=== PATIENT | male | born 1980 | race Hispanic/Latino ===

== ENCOUNTER 2019-10-09 12:42 | Observation (INO) | payer SELFPAY ==
[2019-10-09 14:16] LABS: Absolute Lymphocytes (CBC) 1.9 K/uL (0.7-4.9); Basophils % 0.7 % (0-1.3); Hematocrit 48.9 % (39.6-49.0); Lymphocytes % 14.5 % (15.3-44.8); MPV 9.1 fL (7.6-11.3); RBC Red Blood Cell Count 5.48 M/uL (4.33-5.43)
[2019-10-09 14:24] LABS: Urine Blood 2+ (NEG); Urine Glucose 2+ (NEG); Urine Protein 1+ (NEG)
--- NOTE | 2019-10-09 14:32 | RAD REPORT ---
EXAM DESCRIPTION: CT - Stone Protocol - 10/09/2019 2:01 pm CLINICAL HISTORY: Abdominal pain. COMPARISON: None. TECHNIQUE: Computed axial tomography of the abdomen pelvis was obtained without oral or IV contrast. Lack of IV and oral contrast limits evaluation of solid organs, bowel, and vessels. Coronal reformat kirstie images were obtained and reviewed. All CT scans are performed using dose optimization technique as appropriate and may include automated exposure control or mA/KV adjustment according to patient size. FINDINGS: A renal calculus is not seen. An ureteral calculus is not noted. A bladder calculus is not present. Fatty liver The Spleen, pancreas and adrenals appear grossly normal There is no evidence of diverticulitis. The appendix is mildly enlarged. Minimal stranding is present within the adjacent fat. No free air. N o abscess Small inguinal hernias contain fat. Small umbilical hernia contains fat IMPRESSION: Negative for a genitourinary calculus Mild enlargement of the appendix with minimal stranding in the adjacent fat suspicious for an early a ppendicitis. This should be correlated clinically
[2019-10-09] MEDS ORDERED: MORPHINE 4 MG/ML SYR ONE (14:34)
[2019-10-09] MEDS ORDERED: NA CHLORIDE 0.9% 1,000 ML ONE ×2 (14:34→16:14)
[2019-10-09 14:35] LABS: Albumin 4.7 g/dL (3.4-5.0); Bilirubin Direct 0.3 mg/dL (0-0.2); Bilirubin Total 1.4 mg/dL (0.2-1.0); Potassium 3.7 mmol/L (3.5-5.1); Protein, Total 8.8 g/dL (6.4-8.2)
[2019-10-09] MEDS ORDERED: ACETAMINOPHEN 500 MG TAB ONE (14:38)
[2019-10-09] MEDS ORDERED: ONDANSETRON 4 MG/2 ML VIAL ONE ×2 (14:38→16:55)
[2019-10-09 14:56] LABS: Urine Bacteria <20 /HPF (NONE SEEN); Urine Culture Reflex Order NOT NEEDED; Urine Mucus 1+ /HPF (NONE SEEN); Urine RBC >50 /HPF (NONE SEEN)
--- NOTE | 2019-10-09 15:05 | ER ---
Nurse's Notes [facility] Name: Aman John Age: 39 yrs Sex: Male : 1980 Arrival Date: 10/09/2019 Time: 12:46 Bed 5 Private MD: Diagnosis: Acute appendicitis Presentation: 10/09 12:54 Presenting complaint: Patient states: "Last night my body was aching, I've been having aj1 a lot of discomfort when I pee, my lower back hurts and my hips and my legs. I went to the clinic and gave them a urine sample and I had blood in it, they said to come to the hospital.". Transition of care: patient was not received from another setting of care. Onset of symptoms was 2019. Risk Assessment: Do you want to hurt yourself or someone else? Patient reports no desire to harm self or others. Initial Sepsis Screen: Does the patient meet any 2 criteria? HR > 90 bpm. No. Patient's initial sepsis screen is negative. Does the patient have a suspected source of infection? Yes: Dysuria/Frequency/Urgency/UTI. Care prior to arrival: None. 12:54 Method Of Arrival: Ambulatory aj1 12:54 Acuity: NITA 3 aj1 Triage Assessment: 12:58 General: Appears in no apparent distress. uncomfortable, Behavior is calm, cooperative, aj1 appropriate for age. Pain: Complains of pain in back Pain currently is 4 out of 10 on a pain scale. Neuro: Level of Consciousness is awake, alert, obeys commands. Cardiovascular: Patient's skin is warm and dry. Respiratory: Airway is patent Respiratory effort is even, unlabored, Respiratory pattern is regular, symmetrical. : Reports burning with urination. Musculoskeletal: Range of motion: intact in all extremities. Historical: - Allergies: 12:58 shrimp; aj1 - Home Meds: 12:58 Gemfibrozil Oral [Active]; Lisinopril Oral [Active]; aj1 - PMHx: 12:58 Diabetes - NIDDM; Hyperlipidemia; Hypertension; aj1 - Immunization history:: Adult Immunizations up to date. - Social history:: Smoking status: Patient/guardian denies using tobacco. - Ebola Screening: : Patient denies travel to an Ebola-affected area in the 21 days before illness onset. Screenin:49 Abuse screen: Denies threats or abuse. Nutritional screening: No deficits noted. em Tuberculosis screening: No symptoms or risk factors identified. Fall Risk None identified. Assessment: 14:40 General: Appears in no apparent distress. comfortable, Behavior is calm, cooperative, em appropriate for age, Reports fever for. Pain: Complains of pain in right low back Pain currently is 4 out of 10 on a pain scale. Neuro: Level of Consciousness is awake, alert, obeys commands, Oriented to person, place, time, situation, Appropriate for age. Cardiovascular: Capillary refill < 3 seconds Patient's skin is warm and dry. Respiratory: Airway is patent Respiratory effort is even, unlabored, Respiratory pattern is regular, symmetrical. GI: Patient currently denies nausea, vomiting. Derm: Skin is intact, is healthy with good turgor, Skin is pink, warm \\T\\ dry. Musculoskeletal: Capillary refill < 3 seconds, Range of motion: intact in all extremities. 14:45 Reassessment: currently rates pain 4/10, does not want any pain medication at this em time, provider notified. 15:30 Reassessment: Patient appears in no apparent distress at this time. Patient and/or em family updated on plan of care and expected duration. Pain level reassessed. Patient is alert, oriented x 3, equal unlabored respirations, skin warm/dry/pink. 16:30 Reassessment: Patient appears in no apparent distress at this time. Patient and/or em family updated on plan of care and expected duration. Pain level reassessed. Patient is alert, oriented x 3, equal unlabored respirations, skin warm/dry/pink. 17:41 Reassessment: Patient appears in no apparent distress at this time. Patient and/or em family updated on plan of care and expected duration. Pain level reassessed. Patient is alert, oriented x 3, equal unlabored respirations, skin warm/dry/pink. report given to TRUDY Amos. Vital Signs: 12:58 BP 150 / 100; Pulse 104; Resp 20; Temp 100.3; Pulse Ox 98% on R/A; Weight 90.72 kg (R); aj1 Height 5 ft. 4 in. (162.56 cm) (R); Pain 4/10; 14:48 BP 132 / 89; Pulse 112; Resp 20; Pulse Ox 97% on R/A; Pain 4/10; em 15:54 BP 130 / 69; Pulse 105; Resp 18; Temp 99.8(O); Pulse Ox 99% on R/A; Pain 4/10; em 16:37 BP 110 / 60; Pulse 98; Pulse Ox 96% on R/A; Pain 3/10; em 12:58 Body Mass Index 34.33 (90.72 kg, 162.56 cm) aj1 ED Course: 12:46 Patient arrived in ED. mr 12:57 Triage completed. aj1 12:58 Arm band placed on Patient placed in waiting room, Patient notified of wait time. aj1 13:47 Mayank Guillen, ELLY is PHCP. pm1 13:47 Minor Jose MD is Attending Physician. pm1 13:59 Initial lab(s) drawn, by me, sent to lab. Inserted saline lock: 20 gauge in right lt1 antecubital area, using aseptic technique. 14:01 CT Stone Protocol In Process Unspecified. EDMS 14:07 Urine Culture Sent. lt1 14:07 Urine Microscopic Only Sent. lt1 14:11 Tramaine Saunders, RN is Primary Nurse. em 14:49 Patient has correct armband on for positive identification. Bed in low position. Call em light in reach. Adult w/ patient. Pulse ox on. NIBP on. 15:04 Taco Mayo MD is Hospitalizing Provider. pm1 17:41 No provider procedures requiring assistance completed. Patient admitted, IV remains in em place. Administered Medications: 14:47 Drug: NS 0.9% 1000 ml Route: IV; Rate: 1000 ml; Site: right antecubital; em 14:47 Drug: Tylenol 1000 mg Route: PO; em 15:50 Follow up: Response: Temperature is decreased em 15:19 Drug: Zosyn 3.375 grams Route: IVPB; Infused Over: 60 mins; Site: right antecubital; em 16:31 Follow up: Response: No adverse reaction; IV Status: Completed infusion; IV Intake: em 100ml 16:31 Drug: NS 0.9% 1000 ml Route: IV; Rate: 125 ml/hr; Site: right antecubital; em 17:26 Not Given (Patient Refused): morphine 4 mg IVP once; RASS on ADMIN: Combtv4, Very em Agttd3, Agttd2, Rstlss1, AlertClm0, Drwsy-1, Lt Sdtn-2, Mod Sdtn-3, Dp Sdtn-4, UnArsble-5 17:26 Not Given (Patient Refused): Zofran 4 mg IVP once; over 2 minutes em Intake: 16:31 IV: 100ml; Total: 100ml. em Outcome: 15:04 Decision to Hospitalize by Provider. pm1 17:41 Admitted to OR accompanied by nurse, via wheelchair, Report called to TRUDY Amos em 17:41 Condition: good 17:41 Instructed on the need for admit, Demonstrated understanding of instructions. 17:59 Patient left the ED. irina Signatures: Dispatcher [employer] Roxane Silva, RN RN 1 Kaykay Rodriguez, Tramaine RN RN em Mayank Guillen, TAG MAKER TAG MAKER pm1 Jorge L Yang RN RN jl7 Violet Perla 1
--- NOTE | 2019-10-09 15:05 | EDPHYS ---
Physician Documentation [facility] Name: Aman John Age: 39 yrs Sex: Male : 1980 Arrival Date: 10/09/2019 Time: 12:46 Bed 5 Private MD: ED Physician Minor Jose HPI: 10/09 14:48 This 39 yrs old Male presents to ER via Ambulatory with complaints of Urinary pm1 Problem, Right Low Back Pain. 14:48 The patient complains of pain in the right low back. pm1 14:48 Onset: The symptoms/episode began/occurred yesterday. Modifying factors: The symptoms pm1 are alleviated by nothing. the symptoms are aggravated by Burning with urination. Associated signs and symptoms: Pertinent positives: dysuria, fever, body aches, Pertinent negatives: diarrhea, nausea, vomiting. Severity of pain: in the emergency department the pain is unchanged. The patient has not experienced similar symptoms in the past. The patient has been recently seen at an urgent care, just prior to arrival, for similar complaints, Urine sample collected, Clinic saw hematuria and sent him to the ER for further evalution. Historical: - Allergies: 12:58 shrimp; aj1 - Home Meds: 12:58 Gemfibrozil Oral [Active]; Lisinopril Oral [Active]; aj1 - PMHx: 12:58 Diabetes - NIDDM; Hyperlipidemia; Hypertension; aj1 - Immunization history:: Adult Immunizations up to date. - Social history:: Smoking status: Patient/guardian denies using tobacco. - Ebola Screening: : Patient denies travel to an Ebola-affected area in the 21 days before illness onset. ROS: 15:10 Eyes: Negative for injury, pain, redness, and discharge, ENT: Negative for injury, pm1 pain, and discharge, Neck: Negative for injury, pain, and swelling, Cardiovascular: Negative for chest pain, palpitations, and edema, Respiratory: Negative for shortness of breath, cough, wheezing, and pleuritic chest pain. 15:10 MS/Extremity: Negative for injury and deformity, Skin: Negative for injury, rash, and discoloration, Neuro: Negative for headache, weakness, numbness, tingling, and seizure. 15:10 Constitutional: Positive for body aches, fever, decreased appetite. 15:10 Abdomen/GI: Negative for abdominal pain, nausea, vomiting, and diarrhea, constipation. 15:10 Back: Positive for flank pain, on the right. 15:10 : Positive for hematuria, burning with urination, Negative for penile discharge, penile pain, testicular pain Exam: 15:10 Head/Face: Normocephalic, atraumatic. Neck: Trachea midline, no thyromegaly or masses pm1 palpated, and no cervical lymphadenopathy. Supple, full range of motion without nuchal rigidity, or vertebral point tenderness. No Meningismus. Chest/axilla: Normal chest wall appearance and motion. Nontender with no deformity. No lesions are appreciated. Cardiovascular: Regular rate and rhythm with a normal S1 and S2. No gallops, murmurs, or rubs. Normal PMI, no JVD. No pulse deficits. Respiratory: Lungs have equal breath sounds bilaterally, clear to auscultation and percussion. No rales, rhonchi or wheezes noted. No increased work of breathing, no retractions or nasal flaring. Abdomen/GI: Soft, non-tender, with normal bowel sounds. No distension or tympany. No guarding or rebound. No evidence of tenderness throughout. 15:10 Skin: Warm, dry with normal turgor. Normal color with no rashes, no lesions, and no evidence of cellulitis. MS/ Extremity: Pulses equal, no cyanosis. Neurovascular intact. Full, normal range of motion. 15:10 Constitutional: The patient appears in no acute distress, alert, awake, non-toxic, well developed, well hydrated, well groomed, well nourished, febrile. 15:10 Back: CVA tenderness, that is mild, is noted on the right. 15:10 Neuro: Orientation: is normal, Motor: is normal, moves all fours. Vital Signs: 12:58 BP 150 / 100; Pulse 104; Resp 20; Temp 100.3; Pulse Ox 98% on R/A; Weight 90.72 kg (R); aj1 Height 5 ft. 4 in. (162.56 cm) (R); Pain 4/10; 14:48 BP 132 / 89; Pulse 112; Resp 20; Pulse Ox 97% on R/A; Pain 4/10; em 15:54 BP 130 / 69; Pulse 105; Resp 18; Temp 99.8(O); Pulse Ox 99% on R/A; Pain 4/10; em 16:37 BP 110 / 60; Pulse 98; Pulse Ox 96% on R/A; Pain 3/10; em 12:58 Body Mass Index 34.33 (90.72 kg, 162.56 cm) aj1 MDM: 13:47 Patient medically screened. [facility] 14:31 Data reviewed: vital signs. Data interpreted: Pulse oximetry: on room air is 98 %. pm1 Interpretation: normal. 14:39 Physician consultation: Taco Mayo MD was called at 14:39, was contacted at 14:39, pm1 regarding admission, patient's condition, and will see patient shortly, Abx, pain medications, NPO, IV fluids and will see the patient in 45-60 minutes. 14:51 Counseling: I had a detailed discussion with the patient and/or guardian regarding: the pm1 historical points, exam findings, and any diagnostic results supporting the discharge/admit diagnosis, lab results, radiology results, the need for further work-up and treatment in the hospital, to return to the emergency department if symptoms worsen or persist or if there are any questions or concerns that arise at home. 15:05 ED course: Patient concerned that he might have the flu. Requested flu swab. pm1 15:08 ED course: Last PO consumption was last night. Patient reports not taking any of his pm1 prescribed medications: lisinopril, gemfibrozil, and metformin. 6.6 A1C last checked without any medications. . 10/09 13:09 Order name: Urine Culture [facility] 10/09 13:09 Order name: Urine Microscopic Only; Complete Time: 15:07 [facility] 10/09 13:47 Order name: Basic Metabolic Panel; Complete Time: 14:38 pm10/09 13:47 Order name: CBC with Diff; Complete Time: 14:31 pm10/09 13:47 Order name: Creatinine for Radiology; Complete Time: 14:35 pm10/09 13:47 Order name: Hepatic Function; Complete Time: 14:38 pm10/09 13:47 Order name: Lipase; Complete Time: 14:38 pm10/09 13:48 Order name: CT Stone Protocol; Complete Time: 14:35 pm10/09 14:22 Order name: Urine Dipstick--Ancillary (enter results); Complete Time: 14:31 dh3 10/09 15:05 Order name: Flu; Complete Time: 15:43 em 10/09 13:09 Order name: Urine Dipstick-Ancillary (obtain specimen); Complete Time: 14:07 snw 10/09 13:47 Order name: IV Saline Lock; Complete Time: 13:59 pm1 10/09 13:47 Order name: Labs collected and sent; Complete Time: 13:59 pm1 10/09 14:38 Order name: NPO; Complete Time: 14:41 pm1 Administered Medications: 14:47 Drug: NS 0.9% 1000 ml Route: IV; Rate: 1000 ml; Site: right antecubital; em 14:47 Drug: Tylenol 1000 mg Route: PO; em 15:50 Follow up: Response: Temperature is decreased em 15:19 Drug: Zosyn 3.375 grams Route: IVPB; Infused Over: 60 mins; Site: right antecubital; em 16:31 Follow up: Response: No adverse reaction; IV Status: Completed infusion; IV Intake: em 100ml 16:31 Drug: NS 0.9% 1000 ml Route: IV; Rate: 125 ml/hr; Site: right antecubital; em 17:26 Not Given (Patient Refused): morphine 4 mg IVP once; RASS on ADMIN: Combtv4, Very em Agttd3, Agttd2, Rstlss1, AlertClm0, Drwsy-1, Lt Sdtn-2, Mod Sdtn-3, Dp Sdtn-4, UnArsble-5 17:26 Not Given (Patient Refused): Zofran 4 mg IVP once; over 2 minutes em Disposition: 20:37 Co-signature as Attending Physician, Minor Jose MD I agree with the assessment and ramona plan of care. Disposition: 10/09/19 15:04 Hospitalization ordered by Taco Mayo for Observation. Preliminary diagnosis is Acute appendicitis. - Bed requested for Telemetry/MedSurg (observation). - Status is Observation. jl7 - Condition is Stable. - Problem is new. - Symptoms have improved. UTI on Admission? No Signatures: Dispatcher [employer] EDRoxane Lai RN RN ajMinor Jacobson MD MD cha Therrien, Shelly, MEDICAL SECRETARY TEACHER-C MEDICAL SECRETARY TEACHER-Csnw Tramaine Saunders, RN RN em Mayank Guillen, ELLY SEQUINS STRINGER pm1 Jorge L Yang RN RN jl7 Margie Prescott Corrections: (The following items were deleted from the chart) 17:17 15:04 Hospitalization Ordered by Taco Mayo MD for Observation. Preliminary eb diagnosis is Acute appendicitis. Bed requested for Telemetry/MedSurg (observation). Status is Observation. Condition is Stable. Problem is new. Symptoms have improved. UTI on Admission? No. pm1 17:59 17:17 10/09/2019 15:04 Hospitalization Ordered by Taco Mayo MD for Observation. jl7 Preliminary diagnosis is Acute appendicitis. Bed requested for Telemetry/MedSurg (observation). Status is Observation. Condition is Stable. Problem is new. Symptoms have improved. UTI on Admission? No. eb
[2019-10-09] MEDS ORDERED: PIPER/TAZO/NS 3.375gm 3.375 GM/100 ML BAG ONE (15:13)
[2019-10-09] MEDS ORDERED: GLYCOPYRROLATE 0.2 MG/ML SYR ONE (16:55)
[2019-10-09] MEDS ORDERED: FENTANYL CITR 100 MCG/2 ML ONE (16:55)
[2019-10-09] MEDS ORDERED: MIDAZOLAM HCL 2 MG/2 ML INJ ONE (16:55)
[2019-10-09] MEDS ORDERED: propofoL 200 MG/20 ML VIAL IV ONE (16:55)
[2019-10-09] MEDS ORDERED: KETOROLAC 30 MG/ML INJ ONE (16:56)
[2019-10-09] MEDS ORDERED: ROCURONIUM 50 MG/5 ML VIAL IV ONE (16:56)
[2019-10-09] MEDS ORDERED: MORPHINE 10 MG/ML VIAL ONE (16:56)
[2019-10-09] MEDS ORDERED: NEOSTIGMINE 1 MG/ML -5 ML ONE (16:56)
[2019-10-09] MEDS ORDERED: LIDOCAINE 1% MPF 5 ML VIAL ONE (16:56)
--- NOTE | 2019-10-09 18:11 | P.HP ---
Date of Service: 10/09/19 PC: This 39-year-old male presented to the emergency room with hematuria. HPC: Patient states he has not feel unwell for the last week. Noticed today it some hematuria. Came to the emergency room for evaluation treatment. PMH: Hyperlipidemia in the past, on no medications at the moment for at PSHx: Negative SOC: Allergic to shrimp SYS REVIEW: No cough, wheeze, shortness of breath. No chest pain or palpitations. Minimal abdominal tenderness at the moment O/E awake alert stable HEENT: Not jaundiced Chest: Chest movement equal bilaterally ABD: Soft no real guarding or tenderness LOCO: Intact DATA: Elevated white cell count, CT scan shows area of congestion around the appendix IMPRESSION: Early appendicitis PLAN: I will take him the operating room for laparoscopic appendectomy. The risks of this procedure have been discussed. The possibility of bleeding, infection, injury to bowel blood vessels and surrounding structures is been explained. The possibility of abscess formation and need for further surgeries and procedures was discussed. He understands and wants to proceed.
[2019-10-09] MEDS ORDERED: ONDANSETRON 4 MG/2 ML VIAL IV PRN (18:52)
[2019-10-09] MEDS ORDERED: MORPHINE 4 MG/ML SYR IV PRN ×2 (18:52→19:39)
--- NOTE | 2019-10-09 19:18 | P.OP ---
Preoperative diagnosis: Acute abdomen Postoperative diagnosis: The same Primary procedure: Laparoscopic appendectomy Anesthesia: General Estimated blood loss: Less than 10 cc Specimen: 1 appendix Operative Technique: The patient was brought to the operating room, placed supine on the table. After the induction of adequate general endotracheal anesthesia, the area of the abdomen was prepped with a DuraPrep solution, and he was draped in the usual aseptic manner. A subumbilical incision was made. This was brought down through the skin and subcutaneous tissue. The Visiport was cavity and created pneumoperitoneum to approximately 12 mm of mercury. Under direct vision a 5 mm trocar was placed in the lower midline and another 5 mm in the right upper quadrant. The patient was then positioned in Trendelenburg and rolled to the left side. We were able to visualize right lower quadrant. We could see a mildly inflamed appendix plane just on the pelvic brim. The appendix was then gently dissected from the surrounding structures. The junction of the appendix with the with the cecum was identified. An opening was made in the mesentery of the appendix. The 10 mm trocar was now converted to a 12 with the camera moved to the right upper port with a 5 mm view. The linear Stapler was introduced into the peritoneal cavity. It was placed across the base of the appendix and fired. A vascular reload was then placed into the Stapler. The mesentery of the appendix was then taken down. The appendix having been was placed into an Endo- Catch, brought out through the umbilical port site. Attention was turned back towards the right lower quadrant. The area was gently irrigated with the saline solution. The effluent was aspirated. 0.25% Marcaine was aerosolize into the right lower quadrant. Attention was turned towards the umbilical trocar. Using the endo-close absorbable sutures were placed to close the defect. The patient also has a umbilical hernia with some fat. We do not interfere with this at this time due to the fact we had taken out a mildly inflamed appendix. The patient was now returned to the neutral position on the OR table. The pneumoperitoneum was collapsed, the umbilical sutures tied, and jamel applied to the skin. At the end of the procedure the patient was in stable condition and sent to the recovery room. Needle sponge and instrument count were correct. 1 specimen was sent for histopathology. Sterile dressings had been applied. Complications: None Transferred to: Recovery Room Condition: Good
[2019-10-09] MEDS: NA CHLORIDE 0.9% 1,000 ML IV SCH (19:20)
[2019-10-09] MEDS ORDERED: PROMETHAZINE INJ 25 MG/ML AMP ONE (19:54)
[2019-10-09] MEDS ORDERED: HYDROMORPHONE HCL 1 MG/ML INJ ONE (19:55)
[2019-10-09] MEDS ORDERED: Levofloxacin500mg IV 500 MG/100 ML BAG IV SCH (20:00)
[2019-10-09 20:10] VITALS: O2SAT 97
[2019-10-09 20:40] VITALS: BMI 34.3
[2019-10-10] MEDS: HYDROCODONE/APAP 7.5/325 MG TAB PO PRN ×2 (01:04→04:45)
[2019-10-10] MEDS: NA CHLORIDE 0.9% 1,000 ML IV SCH ×2 (04:44→10:52)
[2019-10-10 05:54] LABS: Absolute Lymphocytes (CBC) 1.5 K/uL (0.7-4.9); Basophils % 0.5 % (0-1.3); Hematocrit 40.1 % (39.6-49.0); Lymphocytes % 10.7 % (15.3-44.8); RBC Red Blood Cell Count 4.43 M/uL (4.33-5.43)
[2019-10-10 06:22] LABS: Albumin 3.4 g/dL (3.4-5.0); Bilirubin Direct 0.5 mg/dL (0-0.2); Bilirubin Total 1.5 mg/dL (0.2-1.0); Potassium 3.8 mmol/L (3.5-5.1); Protein, Total 6.7 g/dL (6.4-8.2)
--- NOTE | 2019-10-10 13:34 | P.PN ---
Date of Service: 10/10/19 S: Patient feels well today, his pain appears to resolve. The bone aches and urinary difficulties are gone as well. O: Incisions are clean A: Surgically stable P: Discharge patient home.
--- NOTE | 2019-10-10 13:37 | P.DS ---
Admission Date: 10/09/19 Discharge Date: 10/10/19 Disposition: ROUTINE DISCHARGE Discharge Condition: GOOD Brief History of Present Illness: The patient presents to the emergency room with abdominal pain and not feeling well for the last few days. Hospital Course: The patient presents emergency room and was evaluated. He was found have possible early appendicitis. He was brought to the operating room were he underwent a laparoscopic appendectomy. He tolerated this procedure well. This morning is up ambulating, tolerating a diet, was able to shower and is pain free. The patient also complained of pain on urination and joint pain. He denies any discharge. We will cover him with Zithromax and Rocephin prior to his discharge. Vital Signs/Physical Exam: Temp Pulse Resp BP Pulse Ox 98.2 F 87 16 98/63 95 10/10/19 08:00 10/10/19 08:00 10/10/19 08:00 10/10/19 08:00 10/10/19 08:00 Laboratory Data at Discharge: WBC 13.6 K/uL (4.3-10.9) H 10/10/19 05:18 Hgb 13.7 g/dL (13.6-17.9) D 10/10/19 05:18 Hct 40.1 % (39.6-49.0) D 10/10/19 05:18 Plt Count 148 K/uL (152-406) L 10/10/19 05:18 Sodium 143 mmol/L (136-145) 10/10/19 05:18 Potassium 3.8 mmol/L (3.5-5.1) 10/10/19 05:18 BUN 12 mg/dL (7-18) 10/10/19 05:18 Creatinine 0.99 mg/dL (0.55-1.3) 10/10/19 05:18 Glucose 136 mg/dL (74-106) H 10/10/19 05:18 Total Bilirubin 1.5 mg/dL (0.2-1.0) H 10/10/19 05:18 AST 11 U/L (15-37) L 10/10/19 05:18 ALT 36 U/L (12-78) 10/10/19 05:18 Alkaline Phosphatase 63 U/L (45-117) 10/10/19 05:18 Lipase 82 U/L (73-393) 10/10/19 05:18 Home Medications: gemfibroziL [Lopid*] 600 mg PO BEDTIME 10/10/19 Patient Discharge Instructions: Ambulated home, continue incentive spirometry. You may shower, change dressings as needed. See me next Saturday in my office, call for an appointment. Any questions or problems, contact me or go to the emergency room. Diet: Regular
[2019-10-10] MEDS ORDERED: AZITHROMYCIN 1 GM PACKET PO ONE (14:00)
[2019-10-10] MEDS ORDERED: CEFTRIAXONE/SWI 1gm 1 GM/10 ML SYR IVP ONE (14:00)
[2019-10-10 14:47] VITALS: BP 100/63; TEMP 97.3
== END 2019-10-10 14:17 | disposition home or self-care (01) ==
LOC: ER 12:42 → UNDOADMOB 17:14 → ERHOLD 17:14 → OR 17:37 → 2ND 18:50
PROVIDERS: ADMIT Surgery; ATTEND Surgery
PROC: 0DTJ4ZZ Resection of Appendix, Percutaneous Endoscopic Approach (ICD-10-PCS; principal; 2019-10-09 17:00)
DX: K35.80 Unspecified acute appendicitis (principal); Z91.013 Allergy to seafood
CPT/HCPCS: 36415; 74176; 76377; 80048; 80076; 81003; 81015; 83690; 85025; 87077; 87086; 87088; 87186; 87804; 88304; 96365; 99285; G0378; J0696; J1170; J2250; J2405; J2543; J2550; J2704; J2710; J3010; J7030

== ENCOUNTER 2019-10-16 03:43 | Inpatient (IN) | payer SELFPAY ==
[2019-10-16] MEDS ORDERED: MORPHINE 4 MG/ML SYR ONE ×2 (04:20→07:35)
[2019-10-16] MEDS ORDERED: ONDANSETRON 4 MG/2 ML VIAL ONE ×2 (04:20→07:35)
[2019-10-16] MEDS ORDERED: NA CHLORIDE 0.9% 1,000 ML ONE ×2 (04:20→05:13)
[2019-10-16] MEDS ORDERED: TAMSULOSIN 0.4 MG SR CAP ONE (04:26)
[2019-10-16] MEDS ORDERED: KETOROLAC 30 MG/ML INJ ONE (04:26)
[2019-10-16] MEDS ORDERED: CEFTRIAXONE/SWI 1gm 1 GM/10 ML SYR ONE (04:26)
[2019-10-16 04:30] LABS: Absolute Lymphocytes (CBC) 2.7 K/uL (0.7-4.9); Basophils % 1.2 % (0-1.3); Lymphocytes % 52.1 % (15.3-44.8); MPV 7.8 fL (7.6-11.3); RBC Red Blood Cell Count 5.06 M/uL (4.33-5.43)
[2019-10-16 04:52] LABS: Urine Bacteria 20-50 /HPF (NONE SEEN); Urine RBC TNTC /HPF (NONE SEEN)
[2019-10-16 04:53] LABS: Urine Culture Reflex Order NOT NEEDED
[2019-10-16 05:01] LABS: Blood Morphology Comment NOT SEEN (NOT SEEN); Platelet Estimate ADEQ
[2019-10-16 05:40] LABS: Urine Blood 3+ (NEG); Urine Glucose NEGATIVE (NEG); Urine Protein 3+ (NEG); Urine Specific Gravity >1.030 (1.005-1.030); Urine pH 5.5 (5.0-7.0)
[2019-10-16] MEDS ORDERED: CIPROFLOXACIN HCL 500 MG TAB ONE (06:06)
--- NOTE | 2019-10-16 07:08 | RAD REPORT ---
EXAM DESCRIPTION: CT - Stone Protocol - 10/16/2019 6:50 am CLINICAL HISTORY: Flank pain. ABD PAIN COMPARISON: Stone Protocol dated 10/09/2019 TECHNIQUE: Axial images were obtained without oral or IV contrast. Lack of contrast limits solid org an and vascular assessment. The [id number] spans the entirety of the system partially obscuring uppermost abdomen and lung bases. Coronal reformatted images were obtained and reviewed. All CT scans are performed using dose optimization technique as appropriate and may include automated exposure control or mA/KV adjustment according to patient size. FINDINGS: The lower lung bennett are clear. Imaged portions of the liver and spleen show no suspicious findings on non-contrast imaging. The panc reas and adrenal glands are normal. No pathologic lymphadenopathy in the abdomen or pelvis. No urinary tract stones or obstructive uropathy. No bowel obstruction, free air, free fluid or abscess. Appendectomy.Small fat containing umbilical he rnia. No significant bony abnormality. IMPRESSION: No urinary tract stones or obstructive uropathy. Appendectomy.
[2019-10-16] MEDS ORDERED: DIPHENHYDRAMINE 50 MG/ML VIAL ONE (07:45)
[2019-10-16] MEDS ORDERED: METHYLPREDNISOLONE 125 MG INJ ONE (07:45)
[2019-10-16] MEDS ORDERED: FAMOTIDINE 20 MG/2 ML VIAL IV ONE (07:46)
--- NOTE | 2019-10-16 08:05 | ER ---
Nurse's Notes [facility] Name: Aman John Age: 39 yrs Sex: Male : 1980 Arrival Date: 10/16/2019 Time: 03:45 Bed 17 Private MD: Diagnosis: Hematuria;Abdominal and pelvic pain-sp appendectomy;Urinary tract infection, site not specified Presentation: 10/16 03:57 Presenting complaint: Patient states: onset of groin pain approx 30 mins [employer] and states aa1 he went to urinate and it was solid blood. States, "I feel like something's there like a kidney stone or something.". Transition of care: patient was not received from another setting of care. Onset of symptoms was October 16, 2019. Risk Assessment: Do you want to hurt yourself or someone else? Patient reports no desire to harm self or others. Initial Sepsis Screen: Does the patient meet any 2 criteria? No. Patient's initial sepsis screen is negative. Does the patient have a suspected source of infection? Yes: Dysuria/Frequency/Urgency/UTI. Care prior to arrival: None. 03:57 Method Of Arrival: Ambulatory aa1 03:57 Acuity: NITA 3 aa1 Triage Assessment: 03:59 General: Appears in no apparent distress. uncomfortable, Behavior is calm, cooperative, aa1 appropriate for age. Historical: - Allergies: 03:59 shrimp; aa1 - Home Meds: 03:59 gemfibrozil Oral [Active]; lisinopril Oral [Active]; aa1 - PMHx: 03:59 Diabetes - NIDDM; Hyperlipidemia; Hypertension; aa1 - PSHx: 03:59 Appendectomy; aa1 - Immunization history:: Flu vaccine is not up to date. - Social history:: Smoking status: Patient denies any tobacco usage or history of. - Ebola Screening: : No symptoms or risks identified at this time. - Family history:: not pertinent. Screenin:02 Abuse screen: Denies threats or abuse. Denies injuries from another. Nutritional wh screening: No deficits noted. Tuberculosis screening: No symptoms or risk factors identified. Fall Risk None identified. Assessment: 04:03 General: Appears in no apparent distress. Behavior is calm, cooperative, appropriate wh for age. Pain: Complains of pain in penile pain Pain does not radiate. Pain currently is 8 out of 10 on a pain scale. Quality of pain is described as burning, Pain began 1 hour ago. Neuro: Level of Consciousness is awake, alert, obeys commands, Oriented to person, place, time, situation, Appropriate for age. Cardiovascular: Capillary refill < 3 seconds. Respiratory: Airway is patent Respiratory effort is even, unlabored, Respiratory pattern is regular, symmetrical. GI: Abdomen is flat, non-distended, With [place] from S/P Lap Appy Abd is soft and non tender X 4 quads. : Reports burning with urination, pain with urination. EENT: No signs and/or symptoms were reported regarding the EENT system. Derm: Skin is intact, is healthy with good turgor. Musculoskeletal: Circulation, motion, and sensation intact. 05:18 Reassessment: Patient appears in no apparent distress at this time. No changes from previously documented assessment. Patient and/or family updated on plan of care and expected duration. Pain level reassessed. Patient is alert, oriented x 3, equal unlabored respirations, skin warm/dry/pink. 06:05 Reassessment: Patient appears in no apparent distress at this time. No changes from wh previously documented assessment. Patient and/or family updated on plan of care and expected duration. Pain level reassessed. Patient is alert, oriented x 3, equal unlabored respirations, skin warm/dry/pink. 07:08 Reassessment: Patient appears in no apparent distress at this time. No changes from wh previously documented assessment. Patient and/or family updated on plan of care and expected duration. Pain level reassessed. Patient is alert, oriented x 3, equal unlabored respirations, skin warm/dry/pink. 07:45 Reassessment: pt states "i cant even be around shrimp or i feel like i cant breathe so tw2 i am too nervous to get the contrast", provider notified. 08:25 Reassessment: provider discussing results with pt at this time. tw2 08:34 Reassessment: Patient appears in no apparent distress at this time. No changes from tw2 previously documented assessment. Patient and/or family updated on plan of care and expected duration. Pain level reassessed. Patient is alert, oriented x 3, equal unlabored respirations, skin warm/dry/pink. Patient states feeling better. Vital Signs: 03:59 BP 147 / 105; Pulse 71; Resp 16; Temp 97.1; Pulse Ox 100% on R/A; Weight 90.72 kg; aa1 Height 5 ft. 4 in. (162.56 cm); Pain 8/10; 05:18 BP 139 / 81; Pulse 50; Resp 18; Pulse Ox 99% on R/A; wh 07:08 BP 128 / 75; Pulse 57; Resp 18; Pulse Ox 98% on R/A; wh 08:36 BP 113 / 61; Pulse 54; Resp 17; Pulse Ox 99% on R/A; Pain 5/10; tw2 03:59 Body Mass Index 34.33 (90.72 kg, 162.56 cm) aa1 ED Course: 03:45 Patient arrived in ED. cl3 03:54 Minor Jose MD is Attending Physician. ramona 03:57 Kay Carrillo is Primary Nurse. 03:59 Triage completed. aa1 03:59 Arm band placed on right wrist. Patient placed in an exam room, on a stretcher. aa1 04:03 Patient has correct armband on for positive identification. Bed in low position. Call light in reach. Side rails up X 1. Pulse ox on. NIBP on. 04:37 Pelvis XRAY In Process Unspecified. EDMS 05:31 Radiology exam delayed due to lab results not completed at this time. (BUN/Creatinine). eh 06:50 Stone Protocol In Process Unspecified. EDMS 07:01 Primary Nurse role handed off by Kay Carrillo tw2 07:01 Sherine Will, RN is Primary Nurse. tw2 08:04 Estevan Leigh MD is Referral Physician. ramona 08:04 Taco Mayo MD is Referral Physician. ramona 08:34 No provider procedures requiring assistance completed. IV discontinued, intact, tw2 bleeding controlled, No redness/swelling at site. Pressure dressing applied, discontinued 20 g from RIGHT ac at this time. Administered Medications: 04:17 Drug: NS 0.9% 1000 ml Route: IV; Rate: 1 bolus; Site: right antecubital; 05:16 Follow up: Response: No adverse reaction; IV Status: Completed infusion 04:19 Drug: morphine 4 mg Route: IVP; Site: right antecubital; 05:16 Follow up: Response: No adverse reaction; Pain is decreased; RASS: Alert and Calm (0) 04:21 Drug: Zofran 4 mg Route: IVP; Site: right antecubital; 05:16 Follow up: Response: No adverse reaction; Nausea is decreased 04:23 Drug: Flomax 0.4 mg Route: PO; 05:17 Follow up: Response: No adverse reaction 04:25 Drug: TORadol 30 mg Route: IVP; Site: right antecubital; 05:16 Follow up: Response: No adverse reaction; Pain is decreased 04:27 Drug: Rocephin 1 grams Route: IV; Rate: per protocol; Site: right antecubital; 05:17 Follow up: Response: No adverse reaction; IV Status: Completed infusion 05:17 Drug: NS 0.9% 1000 ml Route: IV; Rate: 1 bolus; Site: right antecubital; 06:06 Follow up: Response: No adverse reaction; IV Status: Completed infusion 06:05 Drug: Cipro 500 mg Route: PO; 07:40 Follow up: Response: No adverse reaction tw2 07:36 Drug: Zofran 4 mg Route: IVP; Site: right antecubital; tw2 08:00 Follow up: Response: No adverse reaction tw2 07:38 Drug: morphine 4 mg Route: IVP; Site: right antecubital; tw2 08:33 Follow up: Response: No adverse reaction; Nausea is decreased tw2 08:34 Follow up: Response: No adverse reaction; Pain is decreased; RASS: Alert and Calm (0) tw2 08:29 Not Given (Patient Refused): SOLU-Medrol 125 mg IVP once tw2 08:31 Not Given (Patient Refused): Benadryl 50 mg IVP once tw2 08:31 Not Given (Patient Refused): Pepcid 40 mg IVP once tw2 Outcome: 08:04 Discharge ordered by MD. greene 08:37 Discharged to home ambulatory, with family. tw2 08:37 Condition: stable 08:37 Discharge instructions given to patient, Instructed on discharge instructions, follow up and referral plans. no drinking with medication, no driving heavy equipment, medication usage, Demonstrated understanding of instructions, follow-up care, medications, Prescriptions given X 3. 08:37 Patient left the ED. tw2 Signatures: Dispatcher [employer] EDMS Angirieth, Emily, RN RN aa1 Minor Jose MD MD cha Hagler, Ervin eh Wise, Tara, RN RN tw2 Kay Carrillo Charde cl3
--- NOTE | 2019-10-16 08:06 | EDPHYS ---
Physician Documentation [facility] Name: Aman John Age: 39 yrs Sex: Male : 1980 Arrival Date: 10/16/2019 Time: 03:45 Bed 17 Private MD: ED Physician Minor Jose HPI: 10/16 04:20 This 39 yrs old Male presents to ER via Ambulatory with complaints of Blood In ramona Urine. 04:20 The patient presents with urinary symptoms, dysuria, urinary frequency. Onset: The ramona symptoms/episode began/occurred this morning. Modifying factors: The symptoms are alleviated by nothing, the symptoms are aggravated by movement. Associated signs and symptoms: Pertinent positives: hematuria. Severity of symptoms: At their worst the symptoms were mild, in the emergency department the symptoms are unchanged. The patient has not experienced similar symptoms in the past. Historical: - Allergies: 03:59 shrimp; aa1 - Home Meds: 03:59 gemfibrozil Oral [Active]; lisinopril Oral [Active]; aa1 - PMHx: 03:59 Diabetes - NIDDM; Hyperlipidemia; Hypertension; aa1 - PSHx: 03:59 Appendectomy; aa1 - Immunization history:: Flu vaccine is not up to date. - Social history:: Smoking status: Patient denies any tobacco usage or history of. - Ebola Screening: : No symptoms or risks identified at this time. - Family history:: not pertinent. ROS: 04:20 Constitutional: Negative for fever, chills, and weight loss, Eyes: Negative for injury, ramona pain, redness, and discharge, ENT: Negative for injury, pain, and discharge, Neck: Negative for injury, pain, and swelling, Cardiovascular: Negative for chest pain, palpitations, and edema, Respiratory: Negative for shortness of breath, cough, wheezing, and pleuritic chest pain, : Negative for injury, bleeding, discharge, and swelling, MS/Extremity: Negative for injury and deformity, Skin: Negative for injury, rash, and discoloration, Neuro: Negative for headache, weakness, numbness, tingling, and seizure, Psych: Negative for depression, anxiety, suicide ideation, homicidal ideation, and hallucinations, Allergy/Immunology: Negative for hives, rash, and allergies, Endocrine: Negative for neck swelling, polydipsia, polyuria, polyphagia, and marked weight changes, Hematologic/Lymphatic: Negative for swollen nodes, abnormal bleeding, and unusual bruising. 04:20 Abdomen/GI: Positive for abdominal pain. Exam: 04:20 Constitutional: This is a well developed, well nourished patient who is awake, alert, ramona and in no acute distress. Head/Face: Normocephalic, atraumatic. Eyes: Pupils equal round and reactive to light, extra-ocular motions intact. Lids and lashes normal. Conjunctiva and sclera are non-icteric and not injected. Cornea within normal limits. Periorbital areas with no swelling, redness, or edema. ENT: Nares patent. No nasal discharge, no septal abnormalities noted. Tympanic membranes are normal and external auditory canals are clear. Oropharynx with no redness, swelling, or masses, exudates, or evidence of obstruction, uvula midline. Mucous membranes moist. Neck: Trachea midline, no thyromegaly or masses palpated, and no cervical lymphadenopathy. Supple, full range of motion without nuchal rigidity, or vertebral point tenderness. No Meningismus. Chest/axilla: Normal chest wall appearance and motion. Nontender with no deformity. No lesions are appreciated. Cardiovascular: Regular rate and rhythm with a normal S1 and S2. No gallops, murmurs, or rubs. Normal PMI, no JVD. No pulse deficits. Respiratory: Lungs have equal breath sounds bilaterally, clear to auscultation and percussion. No rales, rhonchi or wheezes noted. No increased work of breathing, no retractions or nasal flaring. Abdomen/GI: Soft, non-tender, with normal bowel sounds. No distension or tympany. No guarding or rebound. No evidence of tenderness throughout. Back: No spinal tenderness. No costovertebral tenderness. Full range of motion. Male : Normal genitalia with no discharge or lesions. Skin: Warm, dry with normal turgor. Normal color with no rashes, no lesions, and no evidence of cellulitis. MS/ Extremity: Pulses equal, no cyanosis. Neurovascular intact. Full, normal range of motion. Neuro: Awake and alert, GCS 15, oriented to person, place, time, and situation. Cranial nerves II-XII grossly intact. Motor strength 5/5 in all extremities. Sensory grossly intact. Cerebellar exam normal. Normal gait. Psych: Awake, alert, with orientation to person, place and time. Behavior, mood, and affect are within normal limits. 04:20 : Male external genitalia: normal, Patient is not circumisioned. Vital Signs: 03:59 BP 147 / 105; Pulse 71; Resp 16; Temp 97.1; Pulse Ox 100% on R/A; Weight 90.72 kg; aa1 Height 5 ft. 4 in. (162.56 cm); Pain 8/10; 05:18 BP 139 / 81; Pulse 50; Resp 18; Pulse Ox 99% on R/A; wh 07:08 BP 128 / 75; Pulse 57; Resp 18; Pulse Ox 98% on R/A; wh 08:36 BP 113 / 61; Pulse 54; Resp 17; Pulse Ox 99% on R/A; Pain 5/10; tw2 03:59 Body Mass Index 34.33 (90.72 kg, 162.56 cm) aa1 MDM: 03:54 Patient medically screened. [facility] 04:24 Data reviewed: vital signs, nurses notes, lab test result(s), radiologic studies, CT ramona scan. 10/16 04:02 Order name: Urine Microscopic Only; Complete Time: 05:30 10/16 04:02 Order name: Urine Culture 10/16 04:09 Order name: Basic Metabolic Panel; Complete Time: 12:11 [facility] 10/16 04:09 Order name: CBC with Diff; Complete Time: 05:30 [facility] 10/16 04:09 Order name: Creatinine for Radiology; Complete Time: 05:30 [facility] 10/16 04:09 Order name: Hepatic Function; Complete Time: 12:11 [facility] 10/16 04:09 Order name: Lipase; Complete Time: 12:11 [facility] 10/16 05:01 Order name: Manual Differential; Complete Time: 05:30 [facility] 10/16 05:33 Order name: Urine Dipstick--Ancillary (enter results); Complete Time: 06:00 [facility] 10/16 04:20 Order name: Pelvis XRAY; Complete Time: 12:11 [facility] 10/16 06:27 Order name: Stone Protocol; Complete Time: 07:31 [facility] 10/16 04:02 Order name: Urine Dipstick-Ancillary (obtain specimen); Complete Time: 04:15 10/16 04:07 Order name: IV Saline Lock; Complete Time: 04:15 10/16 04:07 Order name: Labs collected and sent; Complete Time: 04:15 10/16 04:09 Order name: IV Saline Lock; Complete Time: 04:15 [facility] 10/16 04:09 Order name: Labs collected and sent; Complete Time: 04:15 ramona Administered Medications: 04:17 Drug: NS 0.9% 1000 ml Route: IV; Rate: 1 bolus; Site: right antecubital; 05:16 Follow up: Response: No adverse reaction; IV Status: Completed infusion 04:19 Drug: morphine 4 mg Route: IVP; Site: right antecubital; 05:16 Follow up: Response: No adverse reaction; Pain is decreased; RASS: Alert and Calm (0) 04:21 Drug: Zofran 4 mg Route: IVP; Site: right antecubital; 05:16 Follow up: Response: No adverse reaction; Nausea is decreased 04:23 Drug: Flomax 0.4 mg Route: PO; 05:17 Follow up: Response: No adverse reaction 04:25 Drug: TORadol 30 mg Route: IVP; Site: right antecubital; 05:16 Follow up: Response: No adverse reaction; Pain is decreased 04:27 Drug: Rocephin 1 grams Route: IV; Rate: per protocol; Site: right antecubital; 05:17 Follow up: Response: No adverse reaction; IV Status: Completed infusion 05:17 Drug: NS 0.9% 1000 ml Route: IV; Rate: 1 bolus; Site: right antecubital; 06:06 Follow up: Response: No adverse reaction; IV Status: Completed infusion 06:05 Drug: Cipro 500 mg Route: PO; 07:40 Follow up: Response: No adverse reaction tw2 07:36 Drug: Zofran 4 mg Route: IVP; Site: right antecubital; tw2 08:00 Follow up: Response: No adverse reaction tw2 07:38 Drug: morphine 4 mg Route: IVP; Site: right antecubital; tw2 08:33 Follow up: Response: No adverse reaction; Nausea is decreased tw2 08:34 Follow up: Response: No adverse reaction; Pain is decreased; RASS: Alert and Calm (0) tw2 08:29 Not Given (Patient Refused): SOLU-Medrol 125 mg IVP once tw2 08:31 Not Given (Patient Refused): Benadryl 50 mg IVP once tw2 08:31 Not Given (Patient Refused): Pepcid 40 mg IVP once tw2 Disposition: 10/16/19 08:04 Discharged to Home. Impression: Hematuria, Abdominal and pelvic pain - sp appendectomy, Urinary tract infection, site not specified. - Condition is Stable. - Discharge Instructions: Kidney Stones, Kidney Stones, [id number], Type 2 Diabetes Mellitus, Diagnosis, Adult, [id number], Type 2 Diabetes Mellitus, Self Care, Adult, Type 2 Diabetes Mellitus, Self Care, Adult, [id number], Urinary Tract Infection, Adult, Urinary Frequency, Adult. - Prescriptions for Tylenol- Codeine #3 300-30 mg Oral Tablet - take 2 tablets by ORAL route every 6 hours As needed; 24 tablet. Flomax 0.4 mg Oral Capsule, Sust. Release 24 hr - take 1 capsule by ORAL route once daily 1/2 hour following the same meal each day; 14 capsule. Cipro 500 mg Oral Tablet - take 1 tablet by ORAL route every 12 hours for 7 days; 14 tablet. - Medication Reconciliation Form, Thank You Letter, Antibiotic Education, Prescription Opioid Use, Work release form form. - Follow up: Private Physician; When: 2 - 3 days; Reason: Recheck today's complaints, Re-evaluation by your physician. Follow up: Estevan Leigh; When: 2 - 3 days; Reason: Recheck today's complaints, Re-evaluation by your physician. Follow up: Taco Mayo; When: 2 - 3 days; Reason: Recheck today's complaints, Re-evaluation by your physician. - Problem is new. - Symptoms have improved. Signatures: Dispatcher [employer] EDGuerda Harris, PROCESS TECHNICIAN-C PROCESS TECHNICIAN-CkEmily Short RN RN aa1 Minor Jose MD MD cha Wise, Tara RN RN tw2 Kay Carrillo Corrections: (The following items were deleted from the chart) 06:27 04:10 Abdomen Pelvis W Con+CT.RAD.BRZ ordered. EDMS EDMS 07:19 04:07 BASIC METABOLIC PANEL+C.LAB.BRZ ordered. EDMS EDMS 07:19 04:07 HEPATIC FUNCTION+C.LAB.BRZ ordered. [facility] 07:19 04:07 LIPASE+C.LAB.BRZ ordered. [facility] 08:05 08:04 10/16/2019 08:04 Discharged to Home. Impression: Hematuria; Abdominal and pelvic ramona pain - sp appendectomy. Condition is Stable. Discharge Instructions: Kidney Stones, Kidney Stones, Qlrx-[id number], Type 2 Diabetes Mellitus, Diagnosis, Adult, [id number], Type 2 Diabetes Mellitus, Self Care, Adult, Type 2 Diabetes Mellitus, Self Care, Adult, [id number]. Prescriptions for Tylenol-Codeine #3 300-30 mg Oral Tablet - take 2 tablets by ORAL route every 6 hours As needed; 24 tablet, Flomax 0.4 mg Oral Capsule, Sust. Release 24 hr - take 1 capsule by ORAL route once daily 1/2 hour following the same meal each day; 14 capsule, Cipro 500 mg Oral Tablet - take 1 tablet by ORAL route every 12 hours for 7 days; 14 tablet, Benadryl 25 mg Oral Capsule - take 1 capsule by ORAL route every 6 hours As needed; 30 tablet, Pepcid 20 mg Oral Tablet - take 1 tablet by ORAL route every 12 hours for 10 days; 20 tablet, Prednisone 20 mg Oral Tablet - take 2 tablets by ORAL route once daily for 5 days; 6 tablet. and Forms are Work release form, Medication Reconciliation Form, Thank You Letter, Antibiotic Education, Prescription Opioid Use. Follow up: Private Physician; When: 2 - 3 days; Reason: Recheck today's complaints, Re-evaluation by your physician. Follow up: Estevan Leigh; When: 2 - 3 days; Reason: Recheck today's complaints, Re-evaluation by your physician. Follow up: Taco Mayo; When: 2 - 3 days; Reason: Recheck today's complaints, Re-evaluation by your physician. Problem is new. Symptoms have improved. ramona 08:25 07:35 Abdomen Pelvis W Con+CT.RAD.BRZ ordered. [facility] 08:37 08:05 10/16/2019 08:04 Discharged to Home. Impression: Hematuria; Abdominal and pelvic tw2 pain - sp appendectomy; Urinary tract infection, site not specified. Condition is Stable. Discharge Instructions: Kidney Stones, Kidney Stones, [id number]-[id number], Type 2 Diabetes Mellitus, Diagnosis, Adult, [id number]-[id number], Type 2 Diabetes Mellitus, Self Care, Adult, Type 2 Diabetes Mellitus, Self Care, Adult, [id number]. Prescriptions for Tylenol-Codeine #3 300-30 mg Oral Tablet - take 2 tablets by ORAL route every 6 hours As needed; 24 tablet, Flomax 0.4 mg Oral Capsule, Sust. Release 24 hr - take 1 capsule by ORAL route once daily 1/2 hour following the same meal each day; 14 capsule, Cipro 500 mg Oral Tablet - take 1 tablet by ORAL route every 12 hours for 7 days; 14 tablet, Benadryl 25 mg Oral Capsule - take 1 capsule by ORAL route every 6 hours As needed; 30 tablet, Pepcid 20 mg Oral Tablet - take 1 tablet by ORAL route every 12 hours for 10 days; 20 tablet, Prednisone 20 mg Oral Tablet - take 2 tablets by ORAL route once daily for 5 days; 6 tablet. and Forms are Work release form, Medication Reconciliation Form, Thank You Letter, Antibiotic Education, Prescription Opioid Use. Follow up: Private Physician; When: 2 - 3 days; Reason: Recheck today's complaints, Re-evaluation by your physician. Follow up: Estevan Leigh; When: 2 - 3 days; Reason: Recheck today's complaints, Re-evaluation by your physician. Follow up: Taco Mayo; When: 2 - 3 days; Reason: Recheck today's complaints, Re-evaluation by your physician. Problem is new. Symptoms have improved. ramona
[2019-10-16 08:38] LABS: ALT/SGPT 133 U/L (12-78); AST/SGOT 73 U/L (15-37); Albumin 3.7 g/dL (3.4-5.0); Alkaline Phosphatase 89 U/L (45-117); BUN Blood Urea Nitrogen 11 mg/dL (7-18); Bicarbonate 28 mmol/L (21-32); Bilirubin Direct < 0.1 mg/dL (0-0.2); Bilirubin Total 0.5 mg/dL (0.2-1.0); Glucose Level 118 mg/dL (74-106); Lipase 171 U/L (73-393); Potassium 3.8 mmol/L (3.5-5.1); Protein, Total 7.6 g/dL (6.4-8.2); Sodium Level 141 mmol/L (136-145)
--- NOTE | 2019-10-16 09:05 | RAD REPORT ---
EXAM DESCRIPTION: RAD - Pelvis - 10/16/2019 4:37 am CLINICAL HISTORY: HEMATURIA COMPARISON: Stone Protocol dated 10/16/2019 FINDINGS: No fracture, dislocation or radiographic evidence of AVN. Two clips are seen projecting ov er the mid sacrum.
[2019-10-16] MEDS ORDERED: ONDANSETRON 4 MG/2 ML VIAL IV PRN (16:14)
[2019-10-16] MEDS ORDERED: ACETAMINOPHEN 500 MG TAB PO PRN (16:14)
[2019-10-16 16:57] LABS: BUN Blood Urea Nitrogen 11 mg/dL (7-18); Bicarbonate 30 mmol/L (21-32); Glucose Level 134 mg/dL (74-106); Potassium 3.8 mmol/L (3.5-5.1); Sodium Level 138 mmol/L (136-145)
[2019-10-16] MEDS ORDERED: Meropenem 1000 MG/VIAL IV SCH (17:00)
[2019-10-16] MEDS: NA CHLORIDE 0.9% 1,000 ML IV SCH (17:02)
[2019-10-16] MEDS: Meropenem 1,000 MG in NA CHLORIDE 0.9% 100 ML IV SCH (17:03)
[2019-10-16 17:06] LABS: Absolute Lymphocytes (CBC) 1.6 K/uL (0.7-4.9); Basophils % 0.4 % (0-1.3); Lymphocytes % 23.1 % (15.3-44.8); MPV 7.9 fL (7.6-11.3); RBC Red Blood Cell Count 4.38 M/uL (4.33-5.43)
[2019-10-16 17:11] VITALS: BMI 34.5
[2019-10-16 18:21] LABS: Urine Appearance CLOUDY; Urine Bilirubin NEGATIVE (NEG); Urine Blood 3+ (NEG); Urine Color YELLOW; Urine Glucose TRACE (NEG); Urine Protein 1+ (NEG); Urine pH 5.5 (5.0-7.0)
[2019-10-16 18:30] LABS: Urine Microscopic Reflex ORDER UMIC
[2019-10-16 19:25] LABS: Urine Amorphous Sediment 1+ /HPF (NONE SEEN); Urine Bacteria 20-50 /HPF (NONE SEEN); Urine Culture Reflex Order REFLEXED; Urine Mucus 1+ /HPF (NONE SEEN); Urine RBC >50 /HPF (NONE SEEN)
--- NOTE | 2019-10-16 22:59 | HP ---
Date of Admission: 10/16/2019 Chief Complaint: Hematuria and abnormal culture results with ESBL E coli. History Of Present Illness: Patient is a 39-year-old male with past medical history of obesity, hype rtriglyceridemia, who was recently discharged from the hospital on 10/10/2019, for appendicitis. Jayshree graham also had hematuria. His urine culture was obtained and resulted in ESBL E coli, which was multi -drug resistant. Patient had an uneventful lap appy and doing well postoperatively. Patient came in to the ER this morning, was evaluated. CT stone protocol of the abdomen was done, which did not show any urinary tract stones or obstructive uropathy. Patient was having gross hematuria as well, which has now resolved. Urine is now more cola colored. However, patient still having some spasms and dy suria. Patient was discharged from the ER after the CT was negative and there were no signs of sepsi s. However, the patient was recalled directly to the hospital as a direct admission to the floor for ESBL E coli and this was attempted to be set up as an outpatient; however, the patient is unfunded a nd PICC line placement was unable to be facilitated due to his lack of funding in insurance. Patient 's symptoms are constant, moderate, and progressively worsening. Past Medical History: Hypertriglyceridemia. Surgical History: Recent appendectomy, laparoscopic. Allergies: TO SHRIMP. NO KNOWN DRUG ALLERGIES. Medications: The patient takes tgay-kgj-irpkfox ibuprofen, Tylenol, and takes gemfibrozil. Social History: Patient denies any tobacco use, alcohol use, or illicit drug use. Patient is employ ed in [employer]. Has a and 2 children. Family History: Diabetes runs in the mom. Review of Systems: Ten-point system reviewed, negative except as per HPI. Physical Examination: Vital Signs: Temperature 97.1, heart rate 71, blood pressure 127/105, respirations 16, O2 100% on ro om air. General: Awake, alert, and oriented x3. Slightly ill-appearing male, obese, in some mild distress. HEENT: Normocephalic, atraumatic. PERRLA. EOMI. Moist mucous membranes. Oropharynx is clear. No rmal dentition. Conjunctivae are anicteric. Neck: Supple. No JVD. Trachea midline. CV: S1, S2. Regular rate and rhythm. Peripheral pulses present. Respiratory: Moving air well bilaterally. No wheezing or stridor. Gastrointestinal: Abdomen is soft, nontender, nondistended. Positive bowel sounds. Incision site c lean, dry, intact. Jamel in place. Extremities: No clubbing, cyanosis, or edema. No calf tenderness. Neuro: Cranial nerves 2 through 12 intact grossly. No focal neurological deficit. Speech is normal . Laboratory Data: WBC 7, H and H 13.8 and 39, platelets 214, neutrophils 65%. Sodium 138, potassium 3.8, chloride 106, CO2 of 30, BUN 11, creatinine 0.86, glucose 134, calcium 8.2. CRP is 17.3. ESR i s pending. Repeat UA is pending. Initial UA shows 3+ blood, positive nitrite, negative leukocyte es terase, too numerous to count rbc's, 20-50 wbc, 20-50 bacteria. Urine culture from October 09, 2019, is growing out ESBL E coli. Repeat cultures pending. Imaging Studies: CT scan of the abdomen stone protocol shows a small fat-containing umbilical hernia . No urinary tract stones or obstructive uropathy, appendectomy. Pelvic x-ray shows no fracture, di slocation. Radiographic evidence of AVN, two clips are seen projecting over the mid sacrum. Assessment: A 39-year-old male with, 1.Dysuria secondary to urinary tract infection. 2.Acute cystitis with hematuria secondary to ESBL E coli. We will start him on meropenem 1 g q.8 ho urs. Consult ID. The patient will need PICC line placement and IV antibiotics for a minimum of 7-10 days. We will discuss further with ID. 3.Recent appendectomy. We will have jamel removed today. This case discussed with Dr. Mayo. 4.Obesity, BMI 34.6. 5.Hypertriglyceridemia. We will resume home medications as appropriate. 6.Diabetes mellitus type 2, epb-vhmmecl-efbcyghtl. Patient states that he stopped taking his diabet es medicine due to feeling lightheaded. Patient is slightly hyperglycemic now. Recheck hemoglobin A 1c. If condition will be elevated, we will start on sliding scale insulin. Plan: We will admit patient to Med-Surg, place as inpatient, length of stay greater than 2 midnights . /MODL Voice ID: [id number]
[2019-10-17] MEDS: Meropenem 1,000 MG in NA CHLORIDE 0.9% 100 ML IV SCH ×3 (00:29→16:01)
[2019-10-17] MEDS: NA CHLORIDE 0.9% 1,000 ML IV SCH ×4 (04:20→23:00)
[2019-10-17 05:19] LABS: Absolute Lymphocytes (CBC) 2.3 K/uL (0.7-4.9); Basophils % 0.6 % (0-1.3); Hematocrit 40.3 % (39.6-49.0); Lymphocytes % 35.7 % (15.3-44.8); RBC Red Blood Cell Count 4.51 M/uL (4.33-5.43)
[2019-10-17 05:35] LABS: ALT/SGPT 110 U/L (12-78); AST/SGOT 50 U/L (15-37); Albumin 3.1 g/dL (3.4-5.0); Alkaline Phosphatase 69 U/L (45-117); BUN Blood Urea Nitrogen 8 mg/dL (7-18); Bicarbonate 28 mmol/L (21-32); Bilirubin Total 0.5 mg/dL (0.2-1.0); Glucose Level 102 mg/dL (74-106); Magnesium 2.3 mg/dL (1.8-2.4); Protein, Total 6.6 g/dL (6.4-8.2); Sodium Level 140 mmol/L (136-145)
[2019-10-17] MEDS: ENOXAPARIN 40 MG/0.4 ML SQ SCH (08:56)
[2019-10-17] MEDS ORDERED: D50W 25 GM/50 ML SYRINGE/VIAL IV PRN (11:09)
[2019-10-17] MEDS ORDERED: GLUCAGON 1 MG/VIAL IM PRN (11:09)
[2019-10-17] MEDS: INSULIN -REGULAR HUMAN 50 UNIT/0.5 ML ML SQ SCH ×3 (11:30→20:26)
--- NOTE | 2019-10-17 12:22 | PN ---
Date of Progress Note: 10/17/2019 History: Patient seen and examined, chart reviewed, and case discussed with RN. Patient states that he is still having minimal dysuria. Medications: List reviewed. Physical Examination: Vital Signs: Temperature 97.1, heart rate 61, blood pressure 136/78, respirations 17, O2 96% on room air. General: Awake, alert, oriented x3, in some mild distress. Obese male. CV: S1, S2. Regular rate and rhythm. Peripheral pulses present. Respiratory: Moving air well bilaterally. No wheezing or stridor. Gastrointestinal: Abdomen is soft, nontender, nondistended. Positive bowel sounds. Jocelynn have be en removed. Extremities: No clubbing, cyanosis, or edema. Neurologic: Nonfocal. Laboratory Data: WBC 6.4, H and H 13.7 and 40.3, platelets 223. Sodium 140, potassium 4, chloride 1 08, CO2 28, BUN 8, creatinine 0.71, glucose 108. Hemoglobin A1c is pending. Calcium 8.2, AST 50, AL T 110. UA from yesterday was positive. GC is pending. Repeat urine culture growing out gram-negati ve rods. Initial cultures on the growing out ESBL E coli. Assessment: 39-year-old male with; 1.Dysuria secondary to urinary tract infection. We will check GC, currently pending. 2.Acute cystitis with hematuria secondary to extended-spectrum beta-lactamases Escherichia coli. We will continue on meropenem for a total of 7 days. ID has been consulted. PICC line has been placed . 3.Status post laparoscopic appendectomy. Jocelynn removed yesterday, stable. 4.Obesity, body mass index 34.6. 5.Hypertriglyceridemia, stable. 6.Diabetes mellitus type 2 iqd-uauetsg-yfuohhgdw with hyperglycemia. Hemoglobin A1c is pending. We will start on sliding scale insulin. 7.Deep vein thrombosis prophylaxis with Lovenox. Plan: Social Work to help set up outpatient IV antibiotics, will be challenging as the patient is un funded. /ERIN Voice ID: [id number] Report ID: [id number]
[2019-10-18] MEDS: Meropenem 1,000 MG in NA CHLORIDE 0.9% 100 ML IV SCH ×3 (00:52→16:34)
[2019-10-18] MEDS: NA CHLORIDE 0.9% 1,000 ML IV SCH ×3 (04:32→11:45)
[2019-10-18 06:05] LABS: BUN Blood Urea Nitrogen 9 mg/dL (7-18); Bicarbonate 27 mmol/L (21-32); Glucose Level 91 mg/dL (74-106); Potassium 3.4 mmol/L (3.5-5.1); Sodium Level 144 mmol/L (136-145)
[2019-10-18] MEDS: INSULIN -REGULAR HUMAN 50 UNIT/0.5 ML ML SQ SCH ×4 (07:30→20:50)
[2019-10-18] MEDS: ENOXAPARIN 40 MG/0.4 ML SQ SCH (08:46)
[2019-10-18] MEDS ORDERED: POTASSIUM CL SA 10 MEQ TAB PO ONE (09:00)
--- NOTE | 2019-10-18 11:38 | PN ---
Date of Progress Note: 10/18/2019 Subjective: The patient seen and examined. Chart reviewed and case discussed with RN. Feels better . No significant events overnight. No complaints. Medications: List reviewed. Physical Examination: Vital Signs: Temperature 97.1, heart rate 48, blood pressure 119/70, respirations 16, O2 97% on room air. General: Awake, alert, oriented x3, not in any acute distress. Obese male. CV: S1, S2. Sinus bradycardia. Peripheral pulses present. Respiratory: Moving air well bilaterally. No wheezing or stridor. Gastrointestinal: Abdomen is soft, nontender, nondistended. Positive bowel sounds. No guarding or rigidity. Extremities: No clubbing, cyanosis, or edema. Neurologic: Nonfocal. Laboratory Data: Sodium 144, potassium 3.4, chloride 112, CO2 of 27, BUN 9, creatinine 0.65, glucose 91, calcium 7.6. Repeat urine culture also growing out ESBL E coli. Assessment And Plan: A 39-year-old male with dysuria secondary to urinary tract infection. GC is stephane walter. 1.Acute cystitis with hematuria secondary to extended spectrum beta-lactamase Escherichia coli. We will continue meropenem for a total of 7-10 days. Infectious Disease consulted. Peripherally insert ed central catheter line has been placed. We will need to make arrangements for outpatient IV antibi otics. 2.Status post laparoscopic appendectomy. [place] removed, stable. 3.Obesity, BMI 34.6. 4.Hypokalemia. Replace and monitor. 5.Hypertriglyceridemia, stable. 6.Diabetes mellitus type 2, mfb-egezjdr-nfbgjwglf with hyperglycemia. Continue sliding scale insuli n and monitor blood glucose levels. 7.Prophylaxis. Continue Lovenox. 8.Asymptomatic bradycardia. Plan, Social Work and Case Management to work on setting up outpatient intravenous antibiotics. SA/MODL Voice ID: [id number] Report ID: [id number]
[2019-10-19] MEDS: Meropenem 1,000 MG in NA CHLORIDE 0.9% 100 ML IV SCH ×3 (00:16→16:40)
[2019-10-19 05:27] LABS: BUN Blood Urea Nitrogen 11 mg/dL (7-18); Bicarbonate 30 mmol/L (21-32); Glucose Level 190 mg/dL (74-106); Potassium 3.9 mmol/L (3.5-5.1); Sodium Level 141 mmol/L (136-145)
[2019-10-19] MEDS ORDERED: POTASSIUM CL SA 10 MEQ TAB PO ONE (06:00)
[2019-10-19] MEDS: NA CHLORIDE 0.9% 1,000 ML IV SCH ×2 (07:00→10:01)
[2019-10-19] MEDS: INSULIN -REGULAR HUMAN 50 UNIT/0.5 ML ML SQ SCH ×5 (07:30→21:00)
[2019-10-19] MEDS: ENOXAPARIN 40 MG/0.4 ML SQ SCH (09:56)
--- NOTE | 2019-10-19 12:00 | RAD REPORT ---
EXAM DESCRIPTION: X-ray single view chest. CLINICAL HISTORY: 39 years Male, S/P PICC insertion COMPARISON: None. TECHNIQUE: Single portable x-ray view of the chest performed on 10/17/2019 at 1:26 AM FINDINGS: The lungs are well expanded and are clear. There is no evidence of a pneumothorax. The cardiac silhouette is normal in size and configuration. The mediastinal contours are normal. No acute osseous abnormality is identified. No focal soft tissue abnormalities are seen. Lines and tubes: A right upper extremity PICC line catheter is present. The tip appears to project over the region of the superior vena cava. IMPRESSION: 1. No evidence of acute intrathoracic disease. 2. The tip of the right upper extremity PICC line catheter appears to project over the region of the SVC. Electronically signed by: Vonnie England DO 10/17/2019 1:43 AM MAKEUP SALES CONSULTANT Due to temporary technical issues with the PACS/Fluency reporting system, reports are being signed by the in house radiologist as a courtesy to ensure prompt reporting. The interpreting radiologist is f ully responsible for the content of the report.
--- NOTE | 2019-10-19 18:14 | CON ---
History Of Present Illness: A 39-year-old gentleman came for UTI. He just had a recent appendectomy a few weeks ago, was having some dysuria and his urine culture is growing ESBL E coli, sensitive to nitrofurantoin, cefoxitin, cefotetan, meropenem, amikacin. He is already on meropenem, continue that . CT scan did not show any upper tract abnormality. He has no lower tract abnormalities. No compla ints of reduce urinary force or stream. No previous catheterizations per the patient. Past Medical History: Significant for hypertriglyceridemia. Past Surgical History: Laparoscopic appendectomy. Allergies: SHRIMP. Medications: Reviewed in the chart. He takes Tylenol and gemfibrozil at home Social History: Denies tobacco use, alcohol use, illicit drug. He is employed in town. Lives in [facility] with and 2 children. Family History: Diabetes runs in the family. Review of Systems: Essentially negative. Physical Examination: Vital Signs: He is afebrile and stable. General: He is awake, alert, oriented x3. was present in the room with him. HEENT: Atraumatic, normocephalic. Dentition normal. Cardiovascular: Normal. Respiratory: Normal. Gastrointestinal: Soft, nontender. Extremities: No clubbing. No cyanosis or edema. Neuro: Cranial nerves were grossly intact 2 through 12. Laboratory Data: Reviewed. His CBC with a white count 6.4, H and H are 13 and 40, platelets 223,000 . Chemistry shows sodium 141, potassium 3.9, chloride 107, carbon dioxide 30, BUN 11, creatinine 0.5 , GFR greater than 90, glucose 190. Urine reviewed. Also pending is chlamydia and Neisseria studies . Assessment: Extended spectrum beta-lactamase. Plan: Agree with current management. IV meropenem 7 to 10 days and then probiotics after. Followup p.r.n. Thank you very much. DYLAN/ANISHAL Voice ID: [id number] Report ID: [id number]
--- NOTE | 2019-10-19 18:44 | PN ---
Date of Progress Note: 10/19/2019 Subjective: Patient seen and examined. Chart reviewed and case discussed with RN and Dr. Morales. Richardson napier now is recalling story regarding flank pain on the right radiating towards the front with feve r, chills, and he took 3 days of penicillin in [place]. Patient does remember significant dysuria wit h sensation of passing stone and had bright red blood in his urine. Medications: List reviewed. Physical Examination: Vital Signs: Temperature 97.3, heart rate 54, blood pressure 110/65, respirations 16, O2 of 96% on r oom air. General: Awake, alert, oriented x3, not in any acute distress. Family at the bedside. Obese male. CV: S1, S2. Regular rate and rhythm. Peripheral pulses present. Respiratory: Moving air well bilaterally. No wheezing or stridor. No use of accessory muscles. Gastrointestinal: Abdomen is soft, nontender, nondistended. Positive bowel sounds. Extremities: No clubbing, cyanosis, or edema. Neurologic: Nonfocal. Laboratory Data: Sodium 141, potassium 3.9, chloride 107, CO2 of 30, BUN 11, creatinine 0.85, glucos e 190, calcium 8.6. WBC 6.4, H and H 13.7 and 40.3, platelets 223, neutrophils 53%. Urine culture g rowing out ESBL E coli. Assessment: A 39-year-old male with: 1.Acute cystitis with hematuria secondary to extended spectrum beta-lactamase Escherichia coli. Con tinue with Merrem. Appreciate Dr. Morales's input. He recommends repeating UA in a.m. If the UA is clear, then patient can be discharged with no further antibiotics. Otherwise, will need to be set up with IV antibiotics as an outpatient with either Merrem q.12 hours or Invanz daily for total of 5 to 7 days. 2.Status post laparoscopic appendectomy, stable. 3.Hypokalemia, replaced. Continue to monitor. 4.Hypertriglyceridemia, stable. 5.Diabetes mellitus type 2, bfd-tuaiviw-tphikdzdx with hyperglycemia. Hemoglobin A1c is 7%. 6.Asymptomatic bradycardia, stable. 7.Deep venous thrombosis prophylaxis with Lovenox. 8.Obesity, BMI 34.6. Plan: Repeat UA in a.m. Discontinue planning pending UA. SA/MODL Voice ID: [id number] Report ID: [id number]
[2019-10-19] MEDS ORDERED: TAMSULOSIN 0.4 MG SR CAP PO SCH (21:00)
[2019-10-20] MEDS: Meropenem 1,000 MG in NA CHLORIDE 0.9% 100 ML IV SCH ×3 (00:12→16:19)
[2019-10-20 05:22] LABS: BUN Blood Urea Nitrogen 10 mg/dL (7-18); Bicarbonate 29 mmol/L (21-32); Glucose Level 111 mg/dL (74-106); Potassium 3.8 mmol/L (3.5-5.1); Sodium Level 139 mmol/L (136-145)
[2019-10-20 05:25] LABS: Urine Appearance CLEAR; Urine Bilirubin NEGATIVE (NEG); Urine Blood NEGATIVE (NEG); Urine Color YELLOW; Urine Glucose NEGATIVE (NEG); Urine Protein NEGATIVE (NEG)
[2019-10-20 05:46] LABS: Urine Bacteria <20 /HPF (NONE SEEN); Urine Culture Reflex Order NOT NEEDED; Urine RBC <5 /HPF (NONE SEEN); Urine Urothelial Cells <5 /HPF (NONE SEEN)
[2019-10-20] MEDS ORDERED: POTASSIUM CL SA 10 MEQ TAB PO ONE (06:00)
[2019-10-20] MEDS: NA CHLORIDE 0.9% 1,000 ML IV SCH (06:06)
[2019-10-20] MEDS: INSULIN -REGULAR HUMAN 50 UNIT/0.5 ML ML SQ SCH ×3 (07:30→16:30)
[2019-10-20 08:53] LABS: C.trachomatis RNA,TMA Not Detected (Not Detected)
[2019-10-20] MEDS: ENOXAPARIN 40 MG/0.4 ML SQ SCH ×2 (09:00→09:12)
[2019-10-20 10:04] VITALS: O2SAT 96
--- NOTE | 2019-10-20 12:55 | P.DS ---
Admission Date: 10/16/19 Discharge Date: 10/20/19 Disposition: ROUTINE DISCHARGE Discharge Condition: GOOD Reason for Admission: UTI Consultations: Urology-Dr. Leigh - Problems (1) UTI due to extended-spectrum beta lactamase (ESBL) producing Escherichia coli Status: Acute Brief History of Present Illness: History Of Present Illness: Patient is a 39-year-old male with past medical history of obesity, hypertriglyceridemia, who was recently discharged from the hospital on 10/10/2019, for appendicitis status post laparoscopic laparotomy presented to the ED again with a complaint of hematuria. His urine culture was obtained and resulted ESBL E coli, which was multi-drug resistant. CT stone protocol of the abdomen was done in the ED, which did not show any urinary tract stones or obstructive uropathy. He reported dysuria. The patient was admitted for further management. Hospital Course: Patient admitted to the medical floor, had PICC line placed and started on IV meropenem. ESBL E. coli noted to be sensitive to meropenem. He completed 5 days of meropenem per ID recommendation. He was seen and evaluated by Urology, no further recommendations made. He tested negative for chlamydia and gonorrhea. Patient is currently asymptomatic. Hematuria has resolved. He denies any suprapubic, perineal groin pain. Repeat UA is negative. He is deemed clinically stable for discharge. Vital Signs/Physical Exam: Temp Pulse Resp BP Pulse Ox 97.1 F 58 16 120/80 98 10/20/19 12:00 10/20/19 12:00 10/20/19 12:00 10/20/19 12:00 10/20/19 12:00 General: Alert, In no apparent distress, Oriented x3 HEENT: Mucous membr. moist/pink Neck: Supple Respiratory: Clear to auscultation bilaterally, Normal air movement Cardiovascular: No edema, Regular rate/rhythm, Normal S1 S2 Gastrointestinal: Soft and benign, Non-distended, No tenderness Musculoskeletal: No swelling Integumentary: No rashes Neurological: Normal speech Laboratory Data at Discharge: WBC 6.4 K/uL (4.3-10.9) 10/17/19 04:30 Hgb 13.7 g/dL (13.6-17.9) 10/17/19 04:30 Hct 40.3 % (39.6-49.0) 10/17/19 04:30 Plt Count 223 K/uL (152-406) 10/17/19 04:30 Sodium 139 mmol/L (136-145) 10/20/19 04:53 Potassium 3.8 mmol/L (3.5-5.1) 10/20/19 04:53 BUN 10 mg/dL (7-18) 10/20/19 04:53 Creatinine 0.81 mg/dL (0.55-1.3) 10/20/19 04:53 Glucose 111 mg/dL (74-106) H 10/20/19 04:53 Magnesium 2.3 mg/dL (1.8-2.4) 10/17/19 04:30 Total Bilirubin 0.5 mg/dL (0.2-1.0) 10/17/19 04:30 AST 50 U/L (15-37) H 10/17/19 04:30 ALT 110 U/L (12-78) H 10/17/19 04:30 Alkaline Phosphatase 69 U/L (45-117) 10/17/19 04:30 Lipase 171 U/L (73-393) 10/16/19 07:45 Home Medications: Acetaminophen [Tylenol] 325 mg PO DAILY PRN 10/16/19 Ibuprofen [Motrin] 600 mg PO DAILY PRN 10/16/19 Tamsulosin [Flomax*] 0.4 mg PO BEDTIME #30 cap 10/20/19 New Medications: Tamsulosin [Flomax*] 0.4 mg PO BEDTIME #30 cap Diet: ADA Activity: Ad shailesh Time spent managing pt's care (in minutes): 38
[2019-10-20 16:44] VITALS: BP 108/61; TEMP 97.3
--- NOTE | 2019-10-21 11:08 | CON ---
History Of Present Illness: This is a 39-year-old male, coming in for urinary tract infection with E SBL. Recently had appendix removed because of abdominal discomfort, for which he was seen in the [facility] earlier. Later on, he was called to come back for treatment of urinary tract infection. Patie nt feels much better today. Denies any headache, nausea, vomiting, chest pain, abdominal pain, const ipation, or diarrhea. No more burning urination. Patient has a PICC line in place and is being on 5 th day of his antibiotic of meropenem. Past Medical History: Hypertriglyceridemia. Past Surgical History: Recent appendectomy and laparoscopy. Social History: Nonsmoker, nondrinker. Lives with and 2 kids. Current Medications: Include meropenem. See MAR for other medications. Allergies: SHRIMP. Review of Systems: Ten-point review was performed. Physical Examination: General: This is a 39-year-old male, lying in bed, not in any acute distress. Vital Signs: Temperature 97, pulse 58, respirations 16, blood pressure 120/80. HEENT: Unremarkable. Neck: Supple. Lungs: Clear to auscultation. Heart: S1, S2. Regular. Abdomen: Soft. Extremities: No edema. Laboratory Data: WBC 6.4, hemoglobin 13.7, platelets 233. Sodium 139, potassium 3.8, chloride 105, bicarb 29, BUN 10, creatinine 0.8, glucose is 111. Micro data shows E coli ESBL. Assessment And Plan: Patient with urinary tract infection secondary to Escherichia coli extended-spe ctrum beta-lactamase on 5th day of his treatment. After today's dose at 1700, discontinue meropenem and PICC line. We will discharge the patient from infectious disease service. Thank you, Dr. Saucedo and Dr. Marte for consult. We will follow the patient as needed. Patient to brie e followed as outpatient for repeat urinalysis in 1 week's time. NF/MODL Voice ID: [id number] Report ID: [id number]
== END 2019-10-20 19:04 | disposition home or self-care (01) | DRG 690 ==
LOC: ER 03:43 → 2ND 15:08
PROVIDERS: ADMIT Family Medicine; ATTEND Family Medicine
PROC: 02HV33Z Insertion of Infusion Device into Superior Vena Cava, Percutaneous Approach (ICD-10-PCS; principal; 2019-10-17)
DX: N30.01 Acute cystitis with hematuria (principal); Z16.12 Extended spectrum beta lactamase (ESBL) resistance; B96.20 Unspecified Escherichia coli [E. coli] as the cause of diseases classified elsewhere; E87.6 Hypokalemia; E78.1 Pure hyperglyceridemia; E11.65 Type 2 diabetes mellitus with hyperglycemia; R00.1 Bradycardia, unspecified; E66.9 Obesity, unspecified; Z68.34 Body mass index [BMI] 34.0-34.9, adult; Z98.890 Other specified postprocedural states; Z91.013 Allergy to seafood
CPT/HCPCS: 36415; 71045; 72170; 74176; 76377; 80048; 80053; 80076; 81001; 81003; 81015; 82947; 83036; 83690; 83735; 84132; 85025; 85652; 86140; 87077; 87086; 87088; 87186; 87490; 87590; 94760; 96361; 96365; 96375; 99284; J0696; J1200; J1650; J2405; J2930; J7030